=== PATIENT | female | born 1950 | race Caucasian/White ===

== ENCOUNTER 2018-10-05 08:00 | Outpatient (CLI) | payer MEDICARE ==
[2018-10-05 12:19] LABS: BASOPHILS # (AUTO) 0.1 10^3/uL (0.0-0.1); EOSINOPHILS # (AUTO) 0.1 10^3/uL (0.0-0.7); EOSINOPHILS % (AUTO) 3.3 %; HGB - HEMOGLOBIN 15.4 g/dL (12.0-16.0); LYMPHOCYTES # (AUTO) 1.2 10^3/uL (1.5-3.5); LYMPHOCYTES % (AUTO) 26.3 %; MEAN CORPUSCULAR HEMOGLOBIN 32.9 pg (27.0-31.0); MEAN CORPUSCULAR VOLUME 96.7 fL (81.0-99.0); MEAN PLATELET VOLUME 8.7 fL (7.9-10.8); MONOCYTES # (AUTO) 0.5 10^3/uL (0.0-1.0); MONOCYTES % (AUTO) 11.1 %; NEUTROPHILS # (AUTO) 2.6 10^3/uL (1.5-6.6); NEUTROPHILS % (AUTO) 57.3 %; PLT - PLATELET COUNT 198 10^3/uL (130-450); RED BLOOD COUNT 4.67 10^6/uL (4.20-5.40); RED CELL DISTRIBUTION WIDTH 13.1 % (12.0-15.0); WHITE BLOOD COUNT 4.5 x10^3/uL (4.8-10.8)
[2018-10-05 12:59] LABS: ALBUMIN 3.9 g/dL (3.2-5.5); ALBUMIN/GLOBULIN RATIO 1.2 (1.0-2.2); ALKALINE PHOSPHATASE 96 IU/L (42-121); ALT ALANINE AMINOTRANSFERASE 31 IU/L (10-60); AST ASPARTATE AMINOTRANSFERASE 38 IU/L (10-42); BILIRUBIN,TOTAL 0.5 mg/dL (0.2-1.0); BUN - BLOOD UREA NITROGEN 14 mg/dL (6-20); CALCIUM 8.6 mg/dL (8.5-10.3); CARBON DIOXIDE - CO2 28 mmol/L (21-32); CHLORIDE 104 mmol/L (101-111); CHOL/HDL RATIO 2.2 (<4.4); CHOLESTEROL 168 mg/dL; CREATININE 0.6 mg/dL (0.4-1.0); GFR - MDRD 100 (>89); GLUCOSE 90 mg/dL (70-100); HDL CHOLESTEROL 75 mg/dL; LDL CHOLESTEROL,CALCULATED 66 mg/dL; LDL/HDL RATIO 0.9 (<4.4); SODIUM 138 mmol/L (135-145); TOTAL PROTEIN 7.2 g/dL (6.7-8.2); VLDL CHOLESTEROL 27 mg/dL
== END 2018-10-05 23:59 | disposition home or self-care (01) ==
LOC: LAB.WCP 08:00
PROVIDERS: ATTEND Family Medicine
DX: E55.9 Vitamin D deficiency, unspecified (principal); Z79.890 Hormone replacement therapy; F41.9 Anxiety disorder, unspecified; I10 Essential (primary) hypertension
CPT/HCPCS: 36415; 80053; 80061; 82306; 83721; 84443; 85025

== ENCOUNTER 2019-01-23 08:00 | Outpatient (CLI) | payer MEDICARE | END 2019-01-24 23:59 | disposition home or self-care (01) | LOC: LAB.R 08:00 | PROVIDERS: ATTEND Family Medicine | DX: N39.0 Urinary tract infection, site not specified (principal) | CPT/HCPCS: 87086; 87181 ==

== ENCOUNTER 2019-03-22 12:18 | Outpatient (CLI) | payer MEDICARE, MEDICAID ==
--- NOTE | 2019-04-03 14:56 | Mammography Report ---
Reason: SCREENING EXAM FOR BREAST CANCER Procedure Date: 03/22/2019 Accession Number: [id number] / [id number] Procedure: HERNANDEZ - Screening Mammo w/Juan CPT Code: FULL RESULT: EXAM: Screening Mammo w/Juan DATE: 03/22/2019 1:00 PM CLINICAL HISTORY: Screening encounter. No reported risk factors. TECHNIQUE: (B) - Bilateral CC and MLO views were obtained. COMPARISON: 10/15/2017. PARENCHYMAL PATTERN: (D) - The breast(s) demonstrate(s) heterogeneously dense fibroglandular parenchyma. FINDINGS: There are coarse typically benign calcifications. There are no suspicious masses, calcifications, or areas of distortion. IMPRESSION: Benign findings. BI-RADS category 2. RECOMMENDATION: (ANNUAL) - Recommend routine annual screening mammography. BI-RADS CATEGORY: (2) - Benign Findings. STANDARD QUALIFYING STATEMENTS: 1. This examination was not reviewed with the aid of Computer-Aided Detection (CAD). 2. A negative or benign imaging report should not preclude biopsy if clinically suspicious findings are present. 3. Dense breasts may obscure an underlying neoplasm. 4. This examination was reviewed with the aid of 3D breast imaging (tomosynthesis).
== END 2019-03-22 12:19 | disposition home or self-care (01) ==
LOC: DI 12:18
PROVIDERS: ATTEND Family Medicine
DX: Z12.31 Encounter for screening mammogram for malignant neoplasm of breast (principal)
CPT/HCPCS: 77063; 77067

== ENCOUNTER 2019-07-24 08:00 | Outpatient (CLI) | payer MEDICAID, MEDICARE | END 2019-07-24 23:59 | disposition home or self-care (01) | LOC: LAB.R 08:00 | PROVIDERS: ATTEND Nurse Practitioner | DX: N39.0 Urinary tract infection, site not specified (principal) | CPT/HCPCS: 87077; 87086; 87181 ==

== ENCOUNTER 2020-05-23 11:15 | Outpatient (CLI) | payer MEDICARE, MEDICAID | END 2020-05-23 23:59 | disposition home or self-care (01) | LOC: LAB.R 11:15 | PROVIDERS: ATTEND Family Medicine | DX: N39.0 Urinary tract infection, site not specified (principal) | CPT/HCPCS: 81002; 87086 ==

== ENCOUNTER 2020-12-08 16:18 | Emergency (ER) | payer MEDICARE, MEDICAID ==
[2020-12-08] MEDS ORDERED: methylPREDNISolone SUCCINATE 125 MG/2 ML VIAL IVP STA (17:24)
[2020-12-08] MEDS ORDERED: IPRATROPIUM/ALBUTEROL 3 ML NEB INH STA (17:24)
--- NOTE | 2020-12-08 17:31 | ED Physician Documentation ---
History of Present Illness - Stated complaint Stated Complaint: SOA, WEAK, HEADACHE - Chief complaint Chief Complaint: Resp - History obtained from History obtained from: Patient - History of Present Illness Timing: Today Pain level max: 0 Pain level now: 0 - Additonal information Additional information: Patient is a 70-year-old female who presents to the emergency department with difficulty breathing today. Has a history of COPD and uses inhalers. She states she started Macrobid for UTI and has been having difficulty breathing since starting that yesterday. She states she is not having any itching. Has not taken anything. She states she feels tired and weak today. No fevers. No chills. No vomiting Review of Systems Constitutional: denies: Fever, Chills GI: denies: Vomiting, Diarrhea Skin: denies: Rash PD PAST MEDICAL HISTORY - Past Medical History Past Medical History: Yes Cardiovascular: Hypertension, Coronary artery disease Respiratory: COPD - Present Medications Home Medications: Ambulatory Orders Medication Instructions Recorded Confirmed cephALEXin [Keflex] 500 mg PO Q6H #20 cap 12/08/20 predniSONE [Deltasone] 10 mg PO [id number] #42 tab 12/08/20 - Allergies Allergies/Adverse Reactions: Allergies Allergy/AdvReac Type Severity Reaction Status Date / Time No Known Drug Allergies Allergy Verified 12/08/20 16:52 - Living Situation Living Arrangement: reports: At home - Social History Does the pt smoke?: Yes Smoking Status: Current every day smoker - Family History Family history: reports: Non contributory PD ED PE NORMAL - Vitals Vital signs reviewed: Yes - General General: Alert and oriented X 3, No acute distress, Well developed/nourished - HEENT HEENT: Moist mucous membranes, Pharynx benign - Neck Neck: Supple, no meningeal sign - Cardiac Cardiac: RRR, Strong equal pulses - Respiratory Respiratory: Other (diminished breath sounds and wheezing B) - Abdomen Abdomen: Soft, Non tender, Non distended - Derm Derm: Warm and dry, No rash - Extremities Extremities: No edema - Neuro Neuro: Alert and oriented X 3 - Psych Psych: Normal mood, Normal affect Results - Vitals Vitals: Vital Signs - 24 hr 12/08/20 12/08/20 12/08/20 16:48 16:52 17:36 Temperature 36.6 C Heart Rate 111 H 112 H 113 H Respiratory 24 31 H 20 Rate Blood Pressure 174/67 H 167/85 H O2 Saturation 96 97 12/08/20 12/08/20 17:55 18:43 Temperature 36.6 C Heart Rate 111 H 104 H Respiratory 22 18 Rate Blood Pressure 139/72 H 147/88 H O2 Saturation 94 93 Oxygen O2 Source Room air - EKG (time done) 1731 Rate: Rate (enter#) (112) Rhythm: Sinus tachycardia [place]: Normal Intervals: Normal MT QRS: Normal Ischemia: Normal ST segments - Labs Labs: Laboratory Tests 12/08/20 12/08/20 12/08/20 17:50 17:50 17:50 WBC 10.4 RBC 4.74 Hgb 15.6 Hct 46.2 MCV 97.5 MCH 32.9 H MCHC 33.8 RDW 13.2 Plt Count 189 MPV 9.9 Neut # (Auto) 9.3 H Lymph # (Auto) 0.4 L [place] # (Auto) 0.6 Eos # (Auto) 0.1 Baso # (Auto) 0.0 Absolute Nucleated RBC 0.00 Nucleated RBC % 0.0 Sodium 131 L Potassium 4.3 Chloride 100 L Carbon Dioxide 20 L Anion Gap 11.0 BUN 11 Creatinine 0.8 Estimated GFR (MDRD) 71 L Glucose 120 H Calcium 9.4 Total Bilirubin 1.1 H AST 60 H ALT 42 Alkaline Phosphatase 86 Troponin I High Sens 5.3 Total Protein 7.3 Albumin 4.2 Globulin 3.1 Albumin/Globulin Ratio 1.4 Lipase 34 - Rads (name of study) cxr Radiology: Prelim report reviewed, EMP read contemporaneously, See rad report (No acute cardiopulmonary pathology. ) PD MEDICAL DECISION MAKING - ED course Complexity details: reviewed results, re-evaluated patient, considered differential, d/w patient ED course: Patient with what appears to be a COPD flare, but could also be an allergic reaction to macrobid. Feels much better after steroids and DuoNeb treatment. Breathing easier. Appears more likely a COPD flare. Patient is well-appearing, nontoxic. Afebrile. No hypoxia. No respiratory distress. Will change Macrobid to Keflex. Patient counseled regarding signs and symptoms for which I believe and urgent re-evaluation would be necessary. Patient with good understanding of and agreement to plan and is comfortable going home at this time This document was made in part using voice recognition software. While efforts are made to proofread this document, sound alike and grammatical errors may occur. Departure - Departure Disposition: 01 Home, Self Care Clinical Impression: Dyspnea Qualifiers: Dyspnea type: unspecified Qualified Code(s): R06.00 - Dyspnea, unspecified Condition: Good Instructions: ED Dyspnea Shortness of Breath Follow-Up: Sea Yao MD [Primary Care Provider] - Within 1 week Prescriptions: predniSONE [Deltasone] 10 mg PO [id number] #42 tab cephALEXin [Keflex] 500 mg PO Q6H #20 cap Comments: Your prescriptions were sent to [facility] in [place]. Follow-up with your doctor for further care. Stop the Macrobid. This could be due to an exacerbation of your chronic lung disease versus an allergic reaction to the Macrobid. Return if you worsen Discharge Date/Time: 12/08/20 18:45
--- NOTE | 2020-12-08 17:50 | XRAY Report ---
PROCEDURE: Chest 1 View X-Ray INDICATIONS: dyspnea TECHNIQUE: One view of the chest was acquired. COMPARISON: None FINDINGS: Surgical changes and devices: None. Lungs and pleura: No pleural effusions or pneumothorax. Lungs are clear. Mediastinum: Mediastinal contours appear normal. Heart size is normal. Bones and chest wall: No suspicious bony lesions. Old healed left posterior lateral seventh and eigh th rib fractures are seen. Overlying soft tissues appear unremarkable. IMPRESSION: No acute cardiopulmonary pathology. Reviewed by: Alok Garcia MD on 12/08/2020 5:49 PM PDT Approved by: Alok Garcia MD on 12/08/2020 5:49 PM PDT Station ID: [id number]
[2020-12-08 17:59] LABS: BASOPHILS % (AUTO) 0.4 %; EOSINOPHILS # (AUTO) 0.1 10^3/uL (0.0-0.7); EOSINOPHILS % (AUTO) 0.5 %; HCT - HEMATOCRIT 46.2 % (37.0-47.0); HGB - HEMOGLOBIN 15.6 g/dL (12.0-16.0); LYMPHOCYTES # (AUTO) 0.4 10^3/uL (1.5-3.5); LYMPHOCYTES % (AUTO) 3.4 %; MEAN CORPUSCULAR HEMOGLOBIN 32.9 pg (27.0-31.0); MEAN CORPUSCULAR HGB CONC 33.8 g/dL (32.0-36.0); MEAN CORPUSCULAR VOLUME 97.5 fL (81.0-99.0); MEAN PLATELET VOLUME 9.9 fL (7.9-10.8); MONOCYTES # (AUTO) 0.6 10^3/uL (0.0-1.0); MONOCYTES % (AUTO) 5.6 %; NEUTROPHILS # (AUTO) 9.3 10^3/uL (1.5-6.6); NEUTROPHILS % (AUTO) 89.7 %; PLT - PLATELET COUNT 189 10^3/uL (130-450); RED BLOOD COUNT 4.74 10^6/uL (4.20-5.40); RED CELL DISTRIBUTION WIDTH 13.2 % (12.0-15.0); WHITE BLOOD COUNT 10.4 x10^3/uL (4.8-10.8)
[2020-12-08 18:26] LABS: ALBUMIN 4.2 g/dL (3.2-5.5); ALBUMIN/GLOBULIN RATIO 1.4 (1.0-2.2); BILIRUBIN,TOTAL 1.1 mg/dL (0.2-1.0); CALCIUM 9.4 mg/dL (8.5-10.3); CREATININE 0.8 mg/dL (0.4-1.0); POTASSIUM 4.3 mmol/L (3.5-5.0); TOTAL PROTEIN 7.3 g/dL (6.7-8.2)
[2020-12-08 18:44] VITALS: BP 147/88
== END 2020-12-08 18:45 | disposition home or self-care (01) ==
LOC: ED 16:18
DX: J44.1 Chronic obstructive pulmonary disease with (acute) exacerbation (principal); F17.200 Nicotine dependence, unspecified, uncomplicated; R00.0 Tachycardia, unspecified; I10 Essential (primary) hypertension
CPT/HCPCS: 36415; 80053; 83690; 84484; 85025; 93005; 94640; 96374; 99283

== ENCOUNTER 2020-12-09 16:38 | Outpatient (CLI) | payer MEDICARE, MEDICAID | END 2020-12-09 16:39 | disposition home or self-care (01) | LOC: COV 16:38 | PROVIDERS: ATTEND Ophthalmology | DX: Z01.812 Encounter for preprocedural laboratory examination (principal); H25.811 Combined forms of age-related cataract, right eye; Z20.822 Contact with and (suspected) exposure to COVID-19 ==

== ENCOUNTER 2020-12-12 06:59 | Day surgery (SDC) | payer MEDICARE, MEDICAID ==
[~2020-12-12 06:59] MED LIST: KETOROLAC 0.45% OPHTH DROPS ONE; PHENYLEPHRINE 2.5% OPHTH 2 ML DROPS ONE; PROPARACAINE 0.5% OPHTH DROPS 15 ML ONE
[2020-12-12] MEDS ORDERED: VANCOMYCIN OPHTHALMI 8MG/0.8ML 8 MG/0.8 ML SYRINGE IO ONE ×2 (07:06→08:11)
[2020-12-12] MEDS ORDERED: BSS/LIDOCAINE/EPINEPHRINE 1 ML SYRINGE ONE (07:06)
[2020-12-12] MEDS ORDERED: TRIAMCIN/MOXIFLOX OPHTHALMIC 0.6 ML VIAL IO ONE ×2 (07:06→08:11)
[2020-12-12] MEDS ORDERED: TIMOLOL 0.5% OPHTH DROPS ONE (07:06)
[2020-12-12] MEDS ORDERED: BRIMONIDINE 0.2% OPHTH DROPS 5 ML ONE (07:06)
[2020-12-12] MEDS ORDERED: EPINEPHrine 1 MG/ML AMP ONE (07:06)
--- NOTE | 2020-12-12 07:37 | ANESTHESIA ---
Pre-Anesthesia VS, & Labs - Diagnosis R senile combined cataract - Procedure R extraction cataract w/IOL Vital Signs: Temp Pulse Resp BP Pulse Ox 36.4 C L 85 16 154/90 H 96 12/12/20 07:19 12/12/20 07:19 12/12/20 07:19 12/12/20 07:19 12/12/20 07:19 Height: 5 ft 5 in - NPO >8 hours - Is Patient ?: No - Lab Results Lab results reviewed: Yes Home Medications and Allergies Home Medications: Ambulatory Orders Estradiol [Estrace] 0.5 mg PO DAILY 12/11/20 Metoprolol Succinate [Kapspargo Sprinkle] 25 mg PO DAILY 12/11/20 Estradiol [Estrace] 0.5 mg PO DAILY 12/11/20 Metoprolol Succinate [Kapspargo Sprinkle] 25 mg PO DAILY 12/11/20 Allergies/Adverse Reactions: Allergies Allergy/AdvReac Type Severity Reaction Status Date / Time No Known Drug Allergies Allergy Verified 12/08/20 16:52 Anes History & Medical History - Anesthetic History Anesthesia Complications: reports: No previous complications Family history of Anesthesia Complications: Denies Family history of Malignant Hyperthermia: Denies - Medical History Cardiovascular: reports: None Pulmonary: reports: Other Gastrointestinal: reports: None Urinary: reports: None Musculoskeletal: reports: None Endocrine/Autoimmune: reports: None Skin: reports: Psoriasis Smoking Status: Current every day smoker - Surgical History Gynecologic: reports: Hysterectomy, Other Orthopedic: reports: Spine surgery Exam General: Alert, Oriented x3, Cooperative Dental: WNL Mouth Openin Fingerbreadth Neck Mobility: Normal Mallampati classification: II Thyromental Distance: 4-6 cm Respiratory: Lungs clear, Normal breath sounds Cardiovascular: Regular rate Neurological: Normal speech Mental/Cognitive Status: Alert/Oriented X3, Normal for patient Cognitive Status: Within normal limits Plan Anesthesia Type: MAC Consent for Procedure(s) Verified and Reviewed: Yes Code Status: Attempt Resuscitation ASA classification: 2-Mild systemic disease Is this case an emergency?: No
[2020-12-12] MEDS ORDERED: LACTATED RINGERS 500 ML IV ONE (07:40)
[2020-12-12] MEDS ORDERED: MIDAZOLAM 2 MG/2 ML VIAL ONE ×2 (08:07)
[2020-12-12] MEDS ORDERED: TIMOLOL 0.5% OPHTH DROPS OPTH ONE (08:10)
[2020-12-12] MEDS ORDERED: EPINEPHrine 1 MG/ML AMP IR ONE (08:10)
[2020-12-12] MEDS ORDERED: CHONDR SULF/HYALURONATE SYRINGE IO ONE (08:10)
[2020-12-12] MEDS ORDERED: BRIMONIDINE 0.2% OPHTH DROPS 5 ML OPTH ONE (08:10)
[2020-12-12] MEDS ORDERED: BSS/LIDOCAINE/EPINEPHRINE 1 ML SYRINGE IO ONE (08:10)
[2020-12-12] MEDS ORDERED: PROPARACAINE 0.5% OPHTH DROPS 15 ML EACHEYE ONE (08:11)
[2020-12-12] MEDS ORDERED: LACTATED RINGERS 300 ML IV ONE (08:17)
[2020-12-12 08:21] VITALS: BP 137/70
--- NOTE | 2020-12-12 09:11 | OPERATIVE REPORT ---
DATE OF SERVICE: 12/12/2020 Physician: Magan West MD PREOPERATIVE DIAGNOSIS: Visually significant cataract, right eye. This was her first cataract surge ry. POSTOPERATIVE DIAGNOSIS: Visually significant cataract, right eye. This was her first cataract surg sohan. PROCEDURE: Phacoemulsification with posterior chamber intraocular lens implant, right eye. SURGEON: Magan West MD. ANESTHESIA: Monitored anesthesia care. COMPLICATIONS: None. OPERATIVE INDICATIONS: This is a 70-year-old woman with progressive vision loss in the right eye due to 2+ cortical cataract and 3+ nuclear sclerotic cataract. Best corrected visual acuity was 20/40 w ith glare to hand motion vision. Indications for surgery are overall decrease in vision, difficulty seeing words on a computer screen, difficulty seeing words, closed caption or game scores on TV, diff iculty seeing street signs, difficulty driving in low light or at night, and difficulty driving at [facility] because of headlights from other vehicles. She was consented at length concerning risks and bene fits of cataract surgery, after which she expressed a desire to proceed with surgery. OPERATIVE PROCEDURE: The patient was taken into OR #3 and placed under monitored anesthesia care. A surgical timeout was conducted, confirming correct patient, correct procedure, and correct surgical site. She was given topical anesthesia and prepped and draped in usual sterile fashion. The eye was entered at the 12 and 9 o'clock positions. Intracameral Shugarcaine was injected into the anterior chamber followed by Viscoat. A continuous-tear curvilinear capsulorrhexis was performed. The nucleu s was hydrodissected and phacoemulsified. The cortex was evacuated using automated infusion and aspi ration. Provisc was injected in the capsular bag and a 18.5 diopter intraocular lens inserted into t he bag. Infusion and aspiration were used to evacuate the viscoelastic materials. The eye was infla lucía to physiologic pressure using balanced salt solution and found to be watertight. Approximately 0 .25 mL of a mixture of triamcinolone and moxifloxacin was injected transsclerally into the vitreous i n the inferotemporal quadrant. An additional 0.55 mL of a mixture of triamcinolone, moxifloxacin, an d vancomycin was injected subconjunctivally in the superior quadrant for infection and inflammation p rophylaxis. Wound integrity was checked with Weck-Sugey sponges. The patient was taken from the [facility] room in good condition and given postoperative instructions. TD: 12/12/2020 08:33
--- NOTE | 2020-12-12 09:48 | ANESTHESIA POST OP EVALUATION ---
Anesthesia Post Eval - Post Anesthesia Eval Vitals: Last Vital Signs Temp 36.4 C L 12/12/20 08:20 Pulse 69 12/12/20 08:20 Resp 16 12/12/20 08:20 BP 137/70 H 12/12/20 08:20 Pulse Ox 96 12/12/20 08:20 CV Function Including HR & BP: positive: Stable Pain Control: positive: Satisfactory Nausea & Vomiting: positive: Negative Mental Status: positive: Baseline Respiratory Status: Airway Patent Hydration Status: Satisfactory Anesthesia Complications: positive: None
== END 2020-12-12 07:00 | disposition home or self-care (01) ==
LOC: SDS 06:59
PROVIDERS: ATTEND Ophthalmology
DX: H25.811 Combined forms of age-related cataract, right eye (principal); I10 Essential (primary) hypertension; F17.200 Nicotine dependence, unspecified, uncomplicated
CPT/HCPCS: 66984; A9270; J3490; J7120

== ENCOUNTER 2021-01-06 07:00 | Outpatient (CLI) | payer MEDICARE, MEDICAID | END 2021-01-06 23:59 | disposition home or self-care (01) | LOC: COV 07:00 | PROVIDERS: ATTEND Ophthalmology | DX: Z01.812 Encounter for preprocedural laboratory examination (principal); H25.812 Combined forms of age-related cataract, left eye; Z20.822 Contact with and (suspected) exposure to COVID-19 ==

== ENCOUNTER 2021-01-09 08:57 | Day surgery (SDC) | payer MEDICARE, MEDICAID ==
[~2021-01-09 08:57] MED LIST changes: +BRIMONIDINE 0.2% OPHTH DROPS 5 ML ONE; +BSS/LIDOCAINE/EPINEPHRINE 1 ML SYRINGE ONE; +EPINEPHrine 1 MG/ML AMP ONE; -PHENYLEPHRINE 2.5% OPHTH 2 ML DROPS ONE; +TIMOLOL 0.5% OPHTH DROPS ONE; +TRIAMCIN/MOXIFLOX OPHTHALMIC 0.6 ML VIAL IO ONE; +VANCOMYCIN OPHTHALMI 8MG/0.8ML 8 MG/0.8 ML SYRINGE IO ONE
--- OUTSIDE RECORDS SUMMARY | 2021-01-09 08:59 | EXTERNAL MEDICAL SUMMARY RPT | Continuity of Care Document ---
:1950 Demographics Phone Unavailable Preferred Language Unknown Marital Status Unknown Presybeterian Affiliation Unknown Race Unknown Ethnic Group Unknown Author Organization Post Address [address] [id number] Phone Social History date description facility [phone]
[2021-01-09] MEDS ORDERED: LACTATED RINGERS 500 ML IV ONE ×2 (10:28→11:01)
[2021-01-09] MEDS ORDERED: TIMOLOL 0.5% OPHTH DROPS OPTH ONE (10:33)
[2021-01-09] MEDS ORDERED: CHONDR SULF/HYALURONATE SYRINGE IO ONE (10:33)
[2021-01-09] MEDS ORDERED: BRIMONIDINE 0.2% OPHTH DROPS 5 ML OPTH ONE (10:33)
[2021-01-09] MEDS ORDERED: EPINEPHrine 1 MG/ML AMP IR ONE (10:33)
[2021-01-09] MEDS ORDERED: MIDAZOLAM 2 MG/2 ML VIAL ONE (10:33)
[2021-01-09] MEDS ORDERED: BSS/LIDOCAINE/EPINEPHRINE 1 ML SYRINGE IO ONE (10:34)
[2021-01-09] MEDS ORDERED: TRIAMCIN/MOXIFLOX OPHTHALMIC 0.6 ML VIAL IO ONE (10:34)
[2021-01-09] MEDS ORDERED: PROPARACAINE 0.5% OPHTH DROPS 15 ML EACHEYE ONE (10:35)
[2021-01-09] MEDS ORDERED: VANCOMYCIN OPHTHALMI 8MG/0.8ML 8 MG/0.8 ML SYRINGE IO ONE (10:35)
--- NOTE | 2021-01-09 10:36 | ANESTHESIA ---
Pre-Anesthesia VS, & Labs - Diagnosis combined cataract - Procedure left cataract extraction with IOL Vital Signs: Temp Pulse Resp BP Pulse Ox 36.7 C 85 16 160/84 H 98 01/09/21 10:08 01/09/21 10:08 01/09/21 10:08 01/09/21 10:08 01/09/21 10:08 Height: 5 ft 4 in Weight (kg): 67 kg Body Mass Index: 25.3 BMI Classification: Overweight - NPO >8 hours - Is Patient ?: No Home Medications and Allergies Estradiol [Estrace] 0.5 mg PO DAILY 12/11/20 Metoprolol Succinate [Kapspargo Sprinkle] 25 mg PO DAILY 12/11/20 Allergies/Adverse Reactions: Allergies Allergy/AdvReac Type Severity Reaction Status Date / Time No Known Drug Allergies Allergy Verified 12/08/20 16:52 Anes History & Medical History - Anesthetic History Anesthesia Complications: reports: No previous complications - Medical History Cardiovascular: reports: None Pulmonary: reports: None Gastrointestinal: reports: None Urinary: reports: None Musculoskeletal: reports: None Endocrine/Autoimmune: reports: None Skin: reports: Psoriasis Smoking Status: Current every day smoker History of Cancer?: No - Surgical History Gynecologic: reports: Hysterectomy Orthopedic: reports: Spine surgery Exam General: Alert, Oriented x3 Dental: WNL Mouth Opening: Can't Open Mouth Neck Mobility: Normal Mallampati classification: II Thyromental Distance: greater than 6 cm Plan Anesthesia Type: MAC Consent for Procedure(s) Verified and Reviewed: Yes Code Status: Attempt Resuscitation ASA classification: 2-Mild systemic disease Is this case an emergency?: No
--- NOTE | 2021-01-09 11:13 | ANESTHESIA POST OP EVALUATION ---
Anesthesia Post Eval - Post Anesthesia Eval Vitals: Last Vital Signs Temp 36.4 C L 01/09/21 11:02 Pulse 78 01/09/21 11:06 Resp 20 01/09/21 11:06 BP 139/68 H 01/09/21 11:06 Pulse Ox 98 01/09/21 11:06 CV Function Including HR & BP: Stable Pain Control: Satisfactory Nausea & Vomiting: Negative Mental Status: Baseline Respiratory Status: Airway Patent Hydration Status: Satisfactory Anesthesia Complications: None
[2021-01-09 11:15] VITALS: BP 133/69
--- NOTE | 2021-01-09 11:29 | OPERATIVE REPORT ---
DATE OF SERVICE: 01/09/2021 Physician: Magan West MD PREOPERATIVE DIAGNOSIS: Visually significant cataract, left eye. Cataract surgery was performed on the right eye on 12/12/2020. POSTOPERATIVE DIAGNOSIS: Visually significant cataract, left eye. Cataract surgery was performed on the right eye on 12/12/2020. PROCEDURE: Phacoemulsification with posterior chamber intraocular lens implant, left eye. SURGEON: Magan West MD. ANESTHESIA: Monitored anesthesia care. COMPLICATIONS: None. OPERATIVE INDICATIONS: This is a 70-year-old woman with progressive vision loss in the left eye due to 3+ nuclear sclerotic and 2+ to 3+ cortical cataract. Best corrected visual acuity was 20/25 with glare to hand motion vision in the left eye. Indications for surgery are overall decrease in vision, difficulty seeing words on a computer screen, difficulty reading, difficulty seeing words, closed caption or game scores on TV, difficulty seeing street signs, difficulty driving in low light or at night, difficulty driving at night because of headlights from other vehicles, difficulty with glare or bright lights in any situation, and difficulty tracking a golf ball. She was consented at length concerning risks and benefits of cataract surgery, after which she expressed a desire to proceed with surgery. OPERATIVE PROCEDURE: The patient was taken into OR #3 and placed under monitored anesthesia care. A surgical timeout was conducted, confirming correct patient, correct procedure, and correct surgical site. She was given topical anesthesia and prepped and draped in usual sterile fashion. The eye was entered at the 6 and 3 o'clock positions. Intracameral Shugarcaine was injected into the anterior chamber followed by Viscoat. A continuous-tear curvilinear capsulorrhexis was performed. The nucleus was hydrodissected and phacoemulsified. The cortex was evacuated using automated infusion and aspiration. Provisc was injected into the capsular bag and a 19.0 diopter toric intraocular lens inserted into the bag and rotated to a premarked axis of 083 degrees. Markers were on the cornea from a [place] marker. Infusion and aspiration were used to evacuate the viscoelastic materials. The eye was inflated to physiologic pressure using balanced salt solution and found to be watertight. The axis was then again verified to be still at 083. Approximately 0.25 mL of a mixture of triamcinolone and moxifloxacin was injected transsclerally into the vitreous in the inferotemporal quadrant. An additional 0.55 mL of a mixture of triamcinolone, moxifloxacin, and vancomycin was injected subconjunctivally in the superior quadrant for infection and inflammation prophylaxis. Wound integrity was checked with Weck-Sugey sponges. The axis of the IOL was again verified to still be at 083. The patient was taken from the operating room in good condition and given postoperative instructions. TD: 01/09/2021 11:28 MTDD
== END 2021-01-09 08:58 | disposition home or self-care (01) ==
LOC: SDS 08:57
PROVIDERS: ATTEND Ophthalmology
DX: H25.812 Combined forms of age-related cataract, left eye (principal); I10 Essential (primary) hypertension; F17.200 Nicotine dependence, unspecified, uncomplicated; E66.3 Overweight; Z68.25 Body mass index [BMI] 25.0-25.9, adult; Z79.899 Other long term (current) drug therapy; Z98.1 Arthrodesis status
CPT/HCPCS: 66984; A9270; J3490; J7120; V2632

== ENCOUNTER 2021-01-17 10:41 | Outpatient (CLI) | payer MEDICARE, MEDICAID ==
[2021-01-17 10:55] LABS: BASOPHILS # (AUTO) 0.1 10^3/uL (0.0-0.1); BASOPHILS % (AUTO) 1.1 %; EOSINOPHILS # (AUTO) 0.1 10^3/uL (0.0-0.7); EOSINOPHILS % (AUTO) 0.9 %; HCT - HEMATOCRIT 46.7 % (37.0-47.0); HGB - HEMOGLOBIN 15.4 g/dL (12.0-16.0); LYMPHOCYTES # (AUTO) 1.6 10^3/uL (1.5-3.5); MEAN CORPUSCULAR HEMOGLOBIN 32.8 pg (27.0-31.0); MEAN CORPUSCULAR VOLUME 99.6 fL (81.0-99.0); MEAN PLATELET VOLUME 9.7 fL (7.9-10.8); MONOCYTES # (AUTO) 0.7 10^3/uL (0.0-1.0); MONOCYTES % (AUTO) 10.1 %; NEUTROPHILS # (AUTO) 4.1 10^3/uL (1.5-6.6); NEUTROPHILS % (AUTO) 62.4 %; PLT - PLATELET COUNT 248 10^3/uL (130-450); RED BLOOD COUNT 4.69 10^6/uL (4.20-5.40); RED CELL DISTRIBUTION WIDTH 13.2 % (12.0-15.0); WHITE BLOOD COUNT 6.5 x10^3/uL (4.8-10.8)
[2021-01-17 11:06] LABS: ALBUMIN 4.3 g/dL (3.2-5.5); ALBUMIN/GLOBULIN RATIO 1.4 (1.0-2.2); BILIRUBIN,TOTAL 0.9 mg/dL (0.2-1.0); CALCIUM 9.3 mg/dL (8.5-10.3); CREATININE 0.7 mg/dL (0.4-1.0); POTASSIUM 4.2 mmol/L (3.5-5.0); TOTAL PROTEIN 7.4 g/dL (6.7-8.2)
== END 2021-01-17 10:42 | disposition home or self-care (01) ==
LOC: LAB 10:41
PROVIDERS: ATTEND Family Medicine
DX: I10 Essential (primary) hypertension (principal); N28.9 Disorder of kidney and ureter, unspecified; F41.9 Anxiety disorder, unspecified
CPT/HCPCS: 36415; 80053; 85025

== ENCOUNTER 2021-04-25 08:47 | Emergency (ER) | payer MEDICARE, MEDICAID ==
[2021-04-25] MEDS ORDERED: KETOROLAC 30 MG/ML VIAL IVP STA (09:19)
[2021-04-25] MEDS ORDERED: IOPAMIDOL-300 100 ML VIAL ONE (09:28)
[2021-04-25 09:39] LABS: BASOPHILS # (AUTO) 0.1 10^3/uL (0.0-0.1); BASOPHILS % (AUTO) 0.9 %; EOSINOPHILS # (AUTO) 0.1 10^3/uL (0.0-0.7); EOSINOPHILS % (AUTO) 1.4 %; HCT - HEMATOCRIT 47.9 % (37.0-47.0); HGB - HEMOGLOBIN 16.3 g/dL (12.0-16.0); LYMPHOCYTES # (AUTO) 1.2 10^3/uL (1.5-3.5); LYMPHOCYTES % (AUTO) 17.4 %; MEAN PLATELET VOLUME 9.8 fL (7.9-10.8); MONOCYTES # (AUTO) 0.7 10^3/uL (0.0-1.0); MONOCYTES % (AUTO) 10.5 %; NEUTROPHILS # (AUTO) 4.8 10^3/uL (1.5-6.6); NEUTROPHILS % (AUTO) 69.2 %; PLT - PLATELET COUNT 197 10^3/uL (130-450); RED BLOOD COUNT 4.94 10^6/uL (4.20-5.40); RED CELL DISTRIBUTION WIDTH 12.6 % (12.0-15.0)
--- NOTE | 2021-04-25 09:40 | ED Physician Documentation ---
History of Present Illness - Stated complaint Stated Complaint: NECK PX - Chief complaint Chief Complaint: General - History obtained from History obtained from: Patient - History of Present Illness Timing: How many days ago (5) Pain level max: 10 Pain level now: 10 - Additonal information Additional information: 71-year-old female complains of left-sided posterior neck pain and occipital head pain. Nothing seems to make it better or worse. She states no increased pain with range of motion. Denies any trauma. No fevers. No chills. No rhinorrhea, no congestion. No vomiting or diarrhea. Review of Systems Ten Systems: 10 systems reviewed and negative Constitutional: denies: Fever, Chills Ears: denies: Ear pain Nose: denies: Rhinorrhea / runny nose, Congestion Throat: denies: Sore throat Cardiac: denies: Chest pain / pressure, Palpitations Respiratory: denies: Dyspnea, Cough GI: denies: Vomiting Skin: denies: Rash Musculoskeletal: denies: Neck pain, Back pain Neurologic: denies: Generalized weakness, Focal weakness, Numbness, Confused, Altered mental status, Headache PD PAST MEDICAL HISTORY - Past Medical History Past Medical History: Yes Cardiovascular: Hypertension, Coronary artery disease Respiratory: COPD - Present Medications Home Medications: Ambulatory Orders Medication Instructions Recorded Confirmed Estradiol [Estrace] 0.5 mg PO DAILY 12/11/20 01/09/21 Metoprolol Succinate [Kapspargo 25 mg PO DAILY 12/11/20 01/09/21 Sprinkle] Oxycodone HCl/Acetaminophen 1 - 2 each PO Q6H PRN #14 tablet 04/25/21 [Percocet 5-325 mg Tablet] - Allergies Allergies/Adverse Reactions: Allergies Allergy/AdvReac Type Severity Reaction Status Date / Time nitrofurantoin Allergy Respiratory Verified 04/25/21 09:05 [From Macrobid] Sulfa (Sulfonamide Allergy Unknown Verified 04/25/21 09:05 Antibiotics) - Social History Does the pt smoke?: Yes Smoking Status: Current every day smoker PD ED PE NORMAL - Vitals Vital signs reviewed: Yes - General General: Alert and oriented X 3, No acute distress - HEENT HEENT: PERRL, Ears normal, Moist mucous membranes, Pharynx benign - Neck Neck: Supple, no meningeal sign, No bony TTP, No JVD, No bruit, Other (FROM without pain. no skin rashes. no radicular symptoms) - Cardiac Cardiac: RRR, No murmur - Respiratory Respiratory: No respiratory distress, Clear bilaterally - Abdomen Abdomen: Soft, Non tender, Non distended - Back Back: No spinal TTP - Derm Derm: Warm and dry - Extremities Extremities: No tenderness to palpate, Normal ROM s pain - Neuro Neuro: Alert and oriented X 3, net wpf developer 2-12 intact, No motor deficit, No sensory deficit, Normal speech Eye Opening: Spontaneous Motor: Obeys Commands Verbal: Oriented GCS Score: 15 - Psych Psych: Normal mood, Normal affect Results - Vitals Vitals: Vital Signs - 24 hr 04/25/21 04/25/21 04/25/21 08:55 09:03 11:03 Temperature 36.2 C L Heart Rate 82 76 70 Respiratory 16 21 17 Rate Blood Pressure 151/75 H 144/70 H 127/62 O2 Saturation 95 98 92 04/25/21 12:11 Temperature 36.2 C L Heart Rate 70 Respiratory 14 Rate Blood Pressure 124/60 O2 Saturation 97 Oxygen O2 Source Room air - Labs Labs: Laboratory Tests 04/25/21 04/25/21 09:29 09:29 WBC 7.0 RBC 4.94 Hgb 16.3 H Hct 47.9 H MCV 97.0 MCH 33.0 H MCHC 34.0 RDW 12.6 Plt Count 197 MPV 9.8 Neut # (Auto) 4.8 Lymph # (Auto) 1.2 L [place] # (Auto) 0.7 Eos # (Auto) 0.1 Baso # (Auto) 0.1 Absolute Nucleated RBC 0.00 Nucleated RBC % 0.0 Sodium 136 Potassium 4.4 Chloride 101 Carbon Dioxide 26 Anion Gap 9.0 BUN 9 Creatinine 0.7 Estimated GFR (MDRD) 83 L Glucose 107 H Calcium 9.3 Total Bilirubin 0.9 AST 38 ALT 33 Alkaline Phosphatase 90 Total Protein 7.6 Albumin 4.3 Globulin 3.3 Albumin/Globulin Ratio 1.3 - Rads (name of study) ct angio head Radiology: Final report received, EMP read contemporaneously, See rad report ct angio neck Radiology: Final report received, EMP read contemporaneously, See rad report PD MEDICAL DECISION MAKING - ED course Complexity details: reviewed results, re-evaluated patient, considered differential, d/w patient, d/w family ED course: No significant findings on angiogram of the head and neck. No evidence of vertebral artery dissection, carotid dissection. No muscular tenderness on exam. Unclear etiology of her symptoms. Pain did resolve with Dilaudid. Will prescribe a small amount of pain medication for home and have her follow-up with her doctor for further care. Patient counseled regarding signs and symptoms for which I believe and urgent re-evaluation would be necessary. Patient with good understanding of and agreement to plan and is comfortable going home at this time This document was made in part using voice recognition software. While efforts are made to proofread this document, sound alike and grammatical errors may occu r. I am prescribing a short course of short-acting opioid pain medication for this patient. I have reviewed the patients [employer] and no concerning findings were noted. I have discussed that the opioids are for short term therapy only, and will not be refilled from the ED. Departure - Departure Disposition: Home, Self Care Clinical Impression: Neck pain Condition: Good Instructions: ED Neck Pain No Trauma Follow-Up: Sea Yao MD [Primary Care Provider] - Within 1 week Prescriptions: Oxycodone HCl/Acetaminophen [Percocet 5-325 mg Tablet] 1 - 2 each PO Q6H PRN #14 tablet PRN Reason: pain Comments: Follow up with your doctor for further care. Your tests do not show any acute abnormalities today. You do have a 50% narrowing in your proximal left internal carotid artery and a 50% narrowing in the proximal left common carotid artery. This can be followed up with your doctor. I am prescribing a short course of narcotic pain medication for you. These are potentially dangerous and addictive medications that should be used carefully. These medications may constipate you. Take an cyku-pbs-uxwwjzv stool softener (docusate) twice daily with plenty of water while taking these medications. If you go 24 hours without a bowel movement, take ikvw-kiu-kqjkjpq miralax, per package instructions. Do not drink or drive while taking these medications. If you received narcotic or sedating medications while in the emergency department, do not drive for 24 hours. Store this medication in a safe, secure place and out of reach of children. It is a violation of federal law to give or sell this medication to another person or to use in a manner other than prescribed. The ED will not refill narcotic prescriptions, including prescriptions lost or stolen. To dispose of unwanted medications: 1. [facility] at [address] in [place] has a medication drop box. They accept prescription medications (in pill form) Wednesday through Wednesday 9:00 a.m. to 5:00 p.m. 2. [facility] accepts prescription medications (in pill form only) for disposal year round. Call for more infor janelle. 3. Contact the [facility] for the next [facility] sponsored prescription drug collection event. , [phone], or [phone]; Discharge Date/Time: 04/25/21 12:12
[2021-04-25 09:51] LABS: ALBUMIN 4.3 g/dL (3.2-5.5); ALBUMIN/GLOBULIN RATIO 1.3 (1.0-2.2); BILIRUBIN,TOTAL 0.9 mg/dL (0.2-1.0); CALCIUM 9.3 mg/dL (8.5-10.3); CREATININE 0.7 mg/dL (0.4-1.0); POTASSIUM 4.4 mmol/L (3.5-5.0); TOTAL PROTEIN 7.6 g/dL (6.7-8.2)
[2021-04-25] MEDS ORDERED: HYDROmorphone 1 MG/ML CARPUJECT IVP STA (10:12)
[2021-04-25] MEDS ORDERED: IOPAMIDOL-300 100 ML VIAL IVP ONE (11:06)
--- NOTE | 2021-04-25 11:24 | CT Report ---
PROCEDURE: ANGIO NECK W INDICATIONS: headache,neck painx 1 week CONTRAST: IV CONTRAST: Isovue 300 ml: 80 PO CONTRAST: *NO PO CONTRAST TECHNIQUE: After the administration of intravenous contrast, 1.5 mm axial sections acquired from the aortic arch to the [employer] of [place]. Coronal 3-D maximum intensity projection (MIP) and/or volume rendering ref ormats were then performed. For radiation dose reduction, the following was used: automated exposur e control, adjustment of mA and/or kV according to patient size. COMPARISON: Correlation is made with the accompanying head CT angiogram, dated . FINDINGS: Image quality: Excellent. Carotid system: The great vessels demonstrate a conventional anatomy as they arise from the aortic a rc. The origins of the common carotid arteries appear patent. There is approximately 50% narrowing seen involving the proximal left common carotid artery. The common carotid arteries otherwise demons trate normal calibers and courses. The bifurcation regions demonstrate atherosclerotic irregularity and calcification. There is approximately 50% narrowing seen involving the left proximal internal car otid artery. The more distal internal carotid arteries demonstrate normal course and caliber. There i s potential prior carotid endarterectomy change. Please correlate with patient history. Posterior circulation: The origins of the vertebral arteries appear patent. The more superior porti ons of the vertebral arteries demonstrate normal course and caliber. They join to form a normal appe aring basilar artery. Soft tissues: Visualized neck soft tissues demonstrate no suspicious abnormalities. The thyroid is normal in size and there are no incidental findings. Bones: No suspicious bony lesions. Visualized cervical spine appears normally aligned. Relatively prominent lower cervical spine degenerative changes are seen. IMPRESSION: There is approximately 50% narrowing seen involving the proximal left internal carotid artery. There is also approximately 50% narrowing seen involving the proximal left common carotid artery. The estimate of stenosis included in the report of the imaging study was calculated using the NASCET method Reviewed by: Sharan Palmer MD on 04/25/2021 10:23 AM ME[facility] Approved by: Sharan Palmer MD on 04/25/2021 10:23 AM ME[facility] Station ID: [id number]
--- NOTE | 2021-04-25 11:26 | CT Report ---
PROCEDURE: ANGIO HEAD W/WO INDICATIONS: headache,neck painx 1 week CONTRAST: IV CONTRAST: Isovue 300 ml: 80 PO CONTRAST: *NO PO CONTRAST TECHNIQUE: Precontrast 4.5 mm thick angled axial sections acquired from the foramen magnum to the vertex. Afte r the administration of intravenous contrast, 1 mm thick sections acquired through the [place] of [place] is. Postcontrast 4.5 mm thick sections then re-acquired from the foramen magnum to the vertex. 3-di mensional gmhdsus-nkuuwyyys-mrpdbcofrv (MIP) and/or volume rendering reformats were acquired of the c entral intracranial vasculature. For radiation dose reduction, the following was used: automated ex posure control, adjustment of mA and/or kV according to patient size. COMPARISON: Correlation is made with the accompanying neck CT angiogram, 04/25/2021. FINDINGS: Image quality: Excellent. Anterior circulation: There is dense calcification seen involving the right intracranial internal car otid artery, with 50-60% narrowing. The flow within the paired anterior cerebral arteries is normal a nd symmetric. The flow within the middle cerebral arteries is normal and symmetric. The anterior co mmunicating artery is seen. No aneurysms are seen. Posterior circulation: Visualized portions of the vertebral arteries demonstrate normal caliber, and join to form a normal appearing basilar artery. Flow within the posterior cerebral arteries is norm al and symmetric. Note is made of a prominent right posterior communicating artery. No aneurysms are seen. CSF spaces: Ventricles are normal in size and shape. Basal cisterns are patent. No extra-axial flu id collections. Brain: No midline shift. No intracranial bleeds or masses. Vick-white matter interface appears int act. Skull and face: Calvarium and facial bones appear intact, without suspicious lesions. Sinuses: Visualized sinuses and mastoids are clear. IMPRESSION: No intracranial hemorrhage is seen. No significant intracranial abnormality is seen. No significant intracranial arterial abnormalities are seen. Reviewed by: Sharan Palmer MD on 04/25/2021 10:25 AM ME[facility] Approved by: Sharan Palmer MD on 04/25/2021 10:25 AM ME[facility] Station ID: [id number]
[2021-04-25 12:13] VITALS: BP 124/60
== END 2021-04-25 12:12 | disposition home or self-care (01) ==
LOC: ED 08:47
DX: M54.2 Cervicalgia (principal); R51.9 Headache, unspecified; I10 Essential (primary) hypertension; F17.200 Nicotine dependence, unspecified, uncomplicated
CPT/HCPCS: 36415; 70496; 70498; 80053; 85025; 96374; 96375; 99284; J1170; Q9967

== ENCOUNTER 2021-04-26 19:48 | Outpatient (CLI) | payer MEDICARE, MEDICAID | END 2021-04-26 19:49 | disposition critical access hospital (66) | LOC: EMS 19:48 | DX: R11.10 Vomiting, unspecified (principal); R07.89 Other chest pain | CPT/HCPCS: A0425; A0429 ==

== ENCOUNTER 2021-04-26 20:00 | Emergency (ER) | payer MEDICARE, MEDICAID ==
[2021-04-26] MEDS ORDERED: SODIUM CHLORIDE 0.9% 1,000 ML IV STA (20:11)
--- NOTE | 2021-04-26 20:18 | ED Physician Documentation ---
History of Present Illness - Stated complaint Stated Complaint: CP/VOMITING - Chief complaint Chief Complaint: Abd Pain - History obtained from History obtained from: Patient, Family - Additonal information Additional information: 71yF with pmh htn on metoprolol, also on estrogen replacement oral therapy p/w nbnb n/v around 4pm today with associated diarrhea X 1 (nonbloody). patient was eating scrambled eggs and trejo and had sudden nausea and then vomited it all up. she felt nauseous for a couple hours more then when her partner came home around 7pm she retched again and was sweaty, experiencing concomitant substernal sudden onset moderate severity "tight" quality chest pain, nonradiating, that resolved after about 10 minutes. denies lightheadedness, abd pain fever, recent travel or sick contacts. vaccinated against covid 19. she does state she has stomach issues at baseline but not usually to this extent. +smoker. denies FH W[place]/CAD Review of Systems Ten Systems: 10 systems reviewed and negative Constitutional: reports: Myalgias. denies: Fever Cardiac: reports: Chest pain / pressure Respiratory: denies: Dyspnea, Cough GI: reports: Nausea, Vomiting, Diarrhea. denies: Abdominal Pain Musculoskeletal: denies: Back pain PD PAST MEDICAL HISTORY - Past Medical History Cardiovascular: Hypertension, Coronary artery disease Respiratory: COPD - Present Medications Home Medications: Ambulatory Orders Medication Instructions Recorded Confirmed Estradiol [Estrace] 0.5 mg PO DAILY 12/11/20 04/26/21 Metoprolol Succinate [Kapspargo 25 mg PO DAILY 12/11/20 04/26/21 Sprinkle] Oxycodone HCl/Acetaminophen 1 - 2 each PO Q6H PRN #14 tablet 04/25/21 04/26/21 [Percocet 5-325 mg Tablet] - Allergies Allergies/Adverse Reactions: Allergies Allergy/AdvReac Type Severity Reaction Status Date / Time nitrofurantoin Allergy Respiratory Verified 04/26/21 20:08 [From Macrobid] Sulfa (Sulfonamide Allergy Unknown Verified 04/26/21 20:08 Antibiotics) - Social History Does the pt smoke?: Yes Smoking Status: Current every day smoker PD ED PE NORMAL - Vitals Vital signs reviewed: Yes - General General: Alert and oriented X 3, No acute distress, Well developed/nourished - HEENT HEENT: Atraumatic, PERRL, EOMI - Neck Neck: Supple, no meningeal sign - Cardiac Cardiac: RRR - Respiratory Respiratory: No respiratory distress, Clear bilaterally - Abdomen Abdomen: Non tender, Non distended - Back Back: No CVA TTP - Derm Derm: Normal color - Extremities Extremities: No deformity - Neuro Neuro: Alert and oriented X 3 - Psych Psych: Normal mood, Normal affect Results - Vitals Vitals: Vital Signs - 24 hr 04/26/21 04/26/21 04/26/21 20:08 20:10 22:10 Temperature 37.0 C 37 C 36.8 C Heart Rate 75 75 71 Respiratory 18 18 17 Rate Blood Pressure 161/98 H 161/98 H 150/80 H O2 Saturation 99 99 98 Oxygen O2 Source Room air - EKG (time done) 2024 Rate: Rate (enter#) (67) Rhythm: NSR [place]: Normal Intervals: Normal [place] QRS: Normal Ischemia: Normal ST segments - Labs Labs: Laboratory Tests 04/26/21 04/26/21 04/26/21 20:16 20:16 20:16 WBC 7.9 RBC 4.63 Hgb 15.2 Hct 45.4 MCV 98.1 MCH 32.8 H MCHC 33.5 RDW 12.5 Plt Count 207 MPV 9.8 Neut # (Auto) 5.8 Lymph # (Auto) 1.3 L [place] # (Auto) 0.7 Eos # (Auto) 0.1 Baso # (Auto) 0.1 Absolute Nucleated RBC 0.00 Nucleated RBC % 0.0 D-Dimer Sodium 134 L Potassium 4.2 Chloride 100 L Carbon Dioxide 26 Anion Gap 8.0 BUN 10 Creatinine 0.8 Estimated GFR (MDRD) 71 L Glucose 148 H Calcium 9.1 Total Bilirubin 0.7 AST 38 ALT 33 Alkaline Phosphatase 88 Troponin I High Sens 2.6 Total Protein 7.0 Albumin 4.0 Globulin 3.0 Albumin/Globulin Ratio 1.3 Lipase 28 04/26/21 20:16 WBC RBC Hgb Hct MCV MCH MCHC RDW Plt Count MPV Neut # (Auto) Lymph # (Auto) [place] # (Auto) Eos # (Auto) Baso # (Auto) Absolute Nucleated RBC Nucleated RBC % D-Dimer 209.5 Sodium Potassium Chloride Carbon Dioxide Anion Gap BUN Creatinine Estimated GFR (MDRD) Glucose Calcium Total Bilirubin AST ALT Alkaline Phosphatase Troponin I High Sens Total Protein Albumin Globulin Albumin/Globulin Ratio Lipase PD MEDICAL DECISION MAKING - ED course ED course: Well appearing 71yF presents after n/v episode and then subsequent retching with associated chest pain. 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 Patient feeling fine in the ED, requesting to go home. labs noncontributory. sand tester without concerning features. HEART score 3 (age, risk factors). GIven the diarrhea, this is not typeical for ACS. plan to f/u outpatient. Departure - Departure Disposition: 01 Home, Self Care Clinical Impression: Chest pain Condition: Good Instructions: ED Chest Pain NonCardiac Comments: You were seen in the emergency department for evaluation of chest pain. Your blood work did not show any emergent findings. Please return to the emergency department immediately if you have any new or worsening symptoms or other concerns. Follow-up with your primary doctor this week.
[2021-04-26 20:23] LABS: BASOPHILS # (AUTO) 0.1 10^3/uL (0.0-0.1); BASOPHILS % (AUTO) 0.9 %; EOSINOPHILS # (AUTO) 0.1 10^3/uL (0.0-0.7); EOSINOPHILS % (AUTO) 1.1 %; HCT - HEMATOCRIT 45.4 % (37.0-47.0); HGB - HEMOGLOBIN 15.2 g/dL (12.0-16.0); LYMPHOCYTES # (AUTO) 1.3 10^3/uL (1.5-3.5); LYMPHOCYTES % (AUTO) 16.3 %; MEAN CORPUSCULAR HEMOGLOBIN 32.8 pg (27.0-31.0); MEAN CORPUSCULAR HGB CONC 33.5 g/dL (32.0-36.0); MEAN CORPUSCULAR VOLUME 98.1 fL (81.0-99.0); MEAN PLATELET VOLUME 9.8 fL (7.9-10.8); MONOCYTES # (AUTO) 0.7 10^3/uL (0.0-1.0); MONOCYTES % (AUTO) 8.3 %; NEUTROPHILS # (AUTO) 5.8 10^3/uL (1.5-6.6); PLT - PLATELET COUNT 207 10^3/uL (130-450); RED BLOOD COUNT 4.63 10^6/uL (4.20-5.40); RED CELL DISTRIBUTION WIDTH 12.5 % (12.0-15.0); WHITE BLOOD COUNT 7.9 x10^3/uL (4.8-10.8)
--- NOTE | 2021-04-26 20:47 | XRAY Report ---
PROCEDURE: Chest 1 View X-Ray INDICATIONS: Chest Pain TECHNIQUE: One view of the chest was acquired. COMPARISON: 12/08/2020. FINDINGS: Surgical changes and devices: None. Lungs and pleura: No pleural effusions or pneumothorax. Lungs are clear. Mediastinum: Mediastinal contours appear normal. Heart size is normal. Bones and chest wall: Chronic left seventh and eighth rib fractures are stable compared to prior exa m No suspicious bony lesions. Overlying soft tissues appear unremarkable. IMPRESSION: No acute cardiopulmonary disease process. Reviewed by: Marisa Pelletier MD, PhD on 04/26/2021 8:46 PM PDT Approved by: Marisa Pelletier MD, PhD on 04/26/2021 8:46 PM PDT Station ID: [id number]
[2021-04-26 20:52] LABS: ALBUMIN/GLOBULIN RATIO 1.3 (1.0-2.2); BILIRUBIN,TOTAL 0.7 mg/dL (0.2-1.0); CALCIUM 9.1 mg/dL (8.5-10.3); CREATININE 0.8 mg/dL (0.4-1.0); POTASSIUM 4.2 mmol/L (3.5-5.0)
[2021-04-26 22:18] VITALS: BP 150/80
[2021-04-26] MEDS ORDERED: ONDANSETRON ODT 4 MG Prepack 2 TL PRN (22:55)
== END 2021-04-26 22:56 | disposition home or self-care (01) ==
LOC: EDBD → EDUNIT# → ED 20:00
DX: R07.9 Chest pain, unspecified (principal); R11.2 Nausea with vomiting, unspecified; R19.7 Diarrhea, unspecified; I25.10 Atherosclerotic heart disease of native coronary artery without angina pectoris; I10 Essential (primary) hypertension; F17.200 Nicotine dependence, unspecified, uncomplicated
CPT/HCPCS: 36415; 80053; 83690; 84484; 85025; 85379; 93005; 96360; 99284

== ENCOUNTER 2021-06-09 11:29 | Outpatient (CLI) | payer MEDICARE, MEDICAID ==
--- NOTE | 2021-06-09 12:52 | XRAY Report ---
PROCEDURE: Knee 3 View RT INDICATIONS: R KNEE PX TECHNIQUE: 3 views of the right knee(s) were acquired. COMPARISON: None. FINDINGS: Bones: No fractures or dislocations. No suspicious bony lesions. There is mild medial and patellof emoral compartment narrowing. Periarticular osteophytes are present without erosions. Lateral patella r subluxation is present. Soft tissues: Prominent joint effusion. No suspicious soft tissue calcifications. IMPRESSION: Prominent joint effusion. Medial and patellofemoral arthritic change. No visualized acut e fracture or dislocation. However, occult injury cannot be excluded. Recommend short interval imagin g follow-up in 7-10 days as clinically indicated for additional evaluation. Reviewed by: Kylee Cruz MD on 06/09/2021 12:51 PM PDT Approved by: Kylee Cruz MD on 06/09/2021 12:51 PM PDT Station ID: [id number]
== END 2021-06-09 23:59 | disposition home or self-care (01) ==
LOC: DI.N 11:29
PROVIDERS: ATTEND Nurse Practitioner
DX: S83.91XA Sprain of unspecified site of right knee, initial encounter (principal); M25.461 Effusion, right knee; M17.11 Unilateral primary osteoarthritis, right knee

== ENCOUNTER 2021-08-09 08:00 | Outpatient (CLI) | payer MEDICARE, MEDICAID | END 2021-08-09 23:59 | disposition home or self-care (01) | LOC: LAB.N 08:00 | PROVIDERS: ATTEND Family Medicine | DX: R39.9 Unspecified symptoms and signs involving the genitourinary system (principal) | CPT/HCPCS: 87077; 87086; 87181 ==

== ENCOUNTER 2021-12-02 10:40 | Outpatient (CLI) | payer MEDICARE, MEDICAID ==
[2021-12-02 11:36] LABS: BASOPHILS # (AUTO) 0.1 10^3/uL (0.0-0.1); BASOPHILS % (AUTO) 0.9 %; EOSINOPHILS # (AUTO) 0.1 10^3/uL (0.0-0.7); EOSINOPHILS % (AUTO) 1.3 %; HGB - HEMOGLOBIN 15.8 g/dL (12.0-16.0); LYMPHOCYTES # (AUTO) 1.6 10^3/uL (1.5-3.5); LYMPHOCYTES % (AUTO) 17.6 %; MEAN CORPUSCULAR HEMOGLOBIN 33.4 pg (27.0-31.0); MEAN CORPUSCULAR HGB CONC 34.3 g/dL (32.0-36.0); MEAN CORPUSCULAR VOLUME 97.3 fL (81.0-99.0); MONOCYTES # (AUTO) 0.9 10^3/uL (0.0-1.0); MONOCYTES % (AUTO) 9.4 %; NEUTROPHILS # (AUTO) 6.6 10^3/uL (1.5-6.6); NEUTROPHILS % (AUTO) 70.4 %; PLT - PLATELET COUNT 202 10^3/uL (130-450); RED BLOOD COUNT 4.73 10^6/uL (4.20-5.40); RED CELL DISTRIBUTION WIDTH 13.1 % (12.0-15.0); WHITE BLOOD COUNT 9.3 x10^3/uL (4.8-10.8)
[2021-12-02 11:41] LABS: BILIRUBIN,URINE NEGATIVE (NEGATIVE); GLUCOSE, URINE (UA) NEGATIVE (NEGATIVE); KETONES,URINE (UA) TRACE mg/dL (NEGATIVE); LEUKOCYTE ESTERASE, URINE NEGATIVE (NEGATIVE); NITRITE,URINE NEGATIVE (NEGATIVE); OCCULT BLOOD,URINE NEGATIVE (NEGATIVE); PH,URINE 5.5 PH (5.0-7.5); PROTEIN,URINE NEGATIVE (NEGATIVE); UROBILINOGEN,URINE 0.2 (NORMAL) E.U./dL (NORMAL)
[2021-12-02 11:57] LABS: ALBUMIN/GLOBULIN RATIO 1.2 (1.0-2.2); ALKALINE PHOSPHATASE 87 IU/L (42-121); ALT ALANINE AMINOTRANSFERASE 42 IU/L (10-60); AST ASPARTATE AMINOTRANSFERASE 53 IU/L (10-42); BILIRUBIN,TOTAL 0.6 mg/dL (0.2-1.0); BUN - BLOOD UREA NITROGEN 13 mg/dL (6-20); CALCIUM 9.1 mg/dL (8.5-10.3); CARBON DIOXIDE - CO2 24 mmol/L (21-32); CHLORIDE 100 mmol/L (101-111); CHOL/HDL RATIO 2.1 (<4.4); CHOLESTEROL 155 mg/dL; CREATININE 0.7 mg/dL (0.4-1.0); GFR - MDRD 83 (>89); GLUCOSE 97 mg/dL (70-100); HDL CHOLESTEROL 75 mg/dL; LDL CHOLESTEROL,CALCULATED 53 mg/dL; LDL/HDL RATIO 0.7 (<4.4); SODIUM 134 mmol/L (135-145); TOTAL PROTEIN 7.3 g/dL (6.7-8.2); TRIGLYCERIDES 136 mg/dL; VLDL CHOLESTEROL 27 mg/dL
[2021-12-02 11:59] LABS: CLARITY,URINE CLEAR (CLEAR); RBC,URINE 0-5 /HPF (0-5); SQUAMOUS EPITHELIAL CELL,UR MOD Squamous (<= Few); WBC,URINE 0-3 /HPF (0-5)
[2021-12-02 12:00] LABS: BACTERIA,URINE Few /HPF (None Seen); MUCUS,URINE Moderate Strands
[2021-12-02 12:06] LABS: THYROID STIMULATING HORMONE 3.5 uIU/mL (0.34-5.60)
--- NOTE | 2021-12-02 15:06 | DEXA Report ---
PROCEDURE: Dexa Spine and/or Hip INDICATIONS: OSTEOPOROSIS SCREENING TECHNIQUE: Dual energy x-ray absorptiometry (DXA) was performed on a Front Flip System. Regions measur ed are the AP Spine, femoral neck, and if needed forearm. COMPARISON: None. FINDINGS: Lumbar Spine: Bone Mineral Density 1.079 g/cm/cm,T score -0.7, normal. The L3 and L4 levels were excluded due to the presence of posterior fusion hardware. Left Hip: Bone Mineral Density 0.803 g/cm/cm,T score -1.6, osteopenia. Left Femoral Neck: Bone Mineral Density 0.787 g/cm/cm, T score -1.8, osteopenia. (T score greater or equal to -1.0: NORMAL) (T score from -1.1 to -2.4: OSTEOPENIA) (T score less than or equal to -2.5 to: OSTEOPOROSIS) Impression: Decreased bone mineral density in the left hip and left femoral neck within the osteopenic range. Patients with diagnosis of osteoporosis or osteopenia should have regular bone mineral density assess ment. For those eligible for Medicare, routine testing is allowed once every 2 years. Testing frequ ency can be increased for patients who have rapidly progressing disease or for those who are receivin g medical therapy to restore bone mass. Reviewed by: Yoel Antonio MD on 12/02/2021 3:05 PM PDT Approved by: Yoel Antonio MD on 12/02/2021 3:05 PM PDT Station ID: [id number]
== END 2021-12-02 10:41 | disposition home or self-care (01) ==
LOC: DI 10:40
PROVIDERS: ATTEND Nurse Practitioner Family
DX: Z13.820 Encounter for screening for osteoporosis (principal); M85.89 Other specified disorders of bone density and structure, multiple sites; Z78.0 Asymptomatic menopausal state; I10 Essential (primary) hypertension; Z13.220 Encounter for screening for lipoid disorders; Z13.21 Encounter for screening for nutritional disorder
CPT/HCPCS: 36415; 80053; 80061; 81001; 82306; 83721; 84443; 85025; 87086

== ENCOUNTER 2021-12-30 12:40 | Outpatient (CLI) | payer MEDICARE, MEDICAID ==
--- NOTE | 2021-12-31 14:08 | Mammography Report ---
BILATERAL DIGITAL SCREENING MAMMOGRAM 3D/2D: 12/30/2021 CLINICAL: Family history of breast cancer. Routine screening. Comparison is made to exams dated: 03/22/2019 mammogram and 10/15/2017 mammogram - [facility]. The tissue of both breasts is heterogeneously dense. This may lower the sensitivity of viviane mography. There are benign calcifications in both breasts. No significant masses, calcifications, or other findings are seen in either breast. There has been no significant interval change. IMPRESSION: BENIGN There is no mammographic evidence of malignancy. A 1 year screening mammogram is recommended. This exam was interpreted at Station ID: [id number]. NOTE: For mammograms, a report in lay terms will be sent to the patient. Approximately 15% of breast malignancies will not be visualized mammographically. In the management of a palpable breast mass, a negative mammogram must not discourage biopsy of a clinically suspicious lesion. Electronically Signed By: Nehemias Abbasi M.D. [facility] [place]:12/30/2021 15:07:35 ACR BI-RADS Category 2: Benign Finding(s) 3342F PARENCHYMAL PATTERN: (D) - The breast(s) demonstrate(s) heterogeneously dense fibroglandular parcarliny ma. BI-RADS CATEGORY: (2) - 2 RECOMMENDATION: (ANNUAL) - Recommend routine annual screening mammography. [id number] 1 year screening LATERALITY: (B)
== END 2021-12-30 12:41 | disposition home or self-care (01) ==
LOC: DI.N 12:40
PROVIDERS: ATTEND Nurse Practitioner Family
DX: Z12.31 Encounter for screening mammogram for malignant neoplasm of breast (principal); Z80.3 Family history of malignant neoplasm of breast

== ENCOUNTER 2022-04-13 09:40 | Outpatient (CLI) | payer MEDICARE ==
--- NOTE | 2022-04-13 12:35 | XRAY Report ---
PROCEDURE: Chest 2 View X-Ray INDICATIONS: CHEST WALL PX TECHNIQUE: 2 view(s) of the chest. COMPARISON: Chest radiograph 04/26/2021. FINDINGS: Surgical changes and devices: None. Lungs and pleura: No pleural effusions or pneumothorax. No suspicious focal airspace opacity. Mediastinum: Cardiac silhouette is within normal limits for size. Mediastinal and hilar contours are similar to before. Bones and chest wall: No definite acute displaced rib fracture visualized. Redemonstrated remote, hea led fracture of the left lateral eighth rib, possibly also the seventh rib. Soft tissues appear unrem arkable. IMPRESSION: No definite acute displaced rib fracture identified radiographically. If symptoms persist, follow-up radiographs and/or CT may be helpful for further evaluation. Reviewed by: Yoel Dominguez MD on 04/13/2022 12:34 PM PDT Approved by: Yoel Dominguez MD on 04/13/2022 12:34 PM PDT Station ID: [id number]
== END 2022-04-13 09:41 | disposition home or self-care (01) ==
LOC: DI.N 09:40
PROVIDERS: ATTEND Nurse Practitioner
DX: R07.89 Other chest pain (principal)

== ENCOUNTER 2022-09-09 14:25 | Outpatient (CLI) | payer MEDICARE, MEDICAID ==
--- NOTE | 2022-09-09 16:30 | XRAY Report ---
PROCEDURE: Ankle 3 View LT INDICATIONS: L ANKLE PX TECHNIQUE: 3 views of the ankle were acquired. COMPARISON: None. FINDINGS: Bones: There is a minimally displaced oblique fracture of the distal fibula at the metadiaphysis. No definite tibial fracture is seen. Remaining osseous structures are intact. Ankle mortise is normally aligned. No suspicious bony lesions. Soft tissues: Soft tissue edema is seen surrounding the ankle. IMPRESSION: Minimally displaced oblique fracture of the distal fibular metadiaphysis. Reviewed by: Yoel Antonio MD on 09/09/2022 4:29 PM PST Approved by: Yoel Antonio MD on 09/09/2022 4:29 PM PST Station ID: [id number]
--- NOTE | 2022-09-09 16:31 | XRAY Report ---
PROCEDURE: Tib/Fib LT INDICATIONS: L LOWER LEG PX TECHNIQUE: 2 views of the tibia and fibula were acquired. COMPARISON: None. FINDINGS: Bones: Minimally displaced oblique fracture of the distal fibular metadiaphysis. The tibia appears to be intact. The proximal fibula is intact. No suspicious bony lesions. Soft tissues: No suspicious soft tissue calcifications or masses. IMPRESSION: Minimally displaced oblique fracture of the distal fibula. Reviewed by: Yoel Antonio MD on 09/09/2022 4:30 PM [facility] [place] Approved by: Yoel Antonio MD on 09/09/2022 4:30 PM [facility] [place] Station ID: [id number]
== END 2022-09-09 23:59 | disposition home or self-care (01) ==
LOC: DI.N 14:25
PROVIDERS: ATTEND Family Medicine
DX: S82.432A Displaced oblique fracture of shaft of left fibula, initial encounter for closed fracture (principal)

== ENCOUNTER 2023-01-26 12:25 | Outpatient (CLI) | payer MEDICARE, MEDICAID ==
--- NOTE | 2023-01-27 10:55 | Mammography Report ---
BILATERAL DIGITAL SCREENING MAMMOGRAM 3D/2D: 01/26/2023 CLINICAL: Routine screening. Comparison is made to exams dated: 12/30/2021 mammogram, 03/22/2019 mammogram, and 10/15/2017 mammogram - formerly [facility]. Both breasts are heterogeneously dense, which may obscure small masses (category c / 51-75% glandular tissue). There are benign calcifications in both breasts. No significant masses, calcifications, or other findings are seen in either breast. There has been no significant interval change. IMPRESSION: BENIGN There is no mammographic evidence of malignancy. A 1 year screening mammogram is recommended. Based on the Tyrer Cuzick model (a risk assessment model) the patients lifetime risk is 11.3% and he r 10 year risk is 7.8%. According to the ACR, ACS, and NCCN guidelines, an annual breast MRI exam freeman ng with mammogram is recommended if the patients lifetime risk is 20% or greater. This exam was interpreted at Station ID: [id number]. NOTE: For mammograms, a report in lay terms will be sent to the patient. Approximately 15% of breast malignancies will not be visualized mammographically. In the management of a palpable breast mass, a negative mammogram must not discourage biopsy of a clinically suspicious lesion. Electronically Signed By: Pranav streeter/quincy:01/26/2023 13:00:34 letter sent: No_Letter ACR BI-RADS Category 2: Benign Finding(s) 3342F PARENCHYMAL PATTERN: (D) - The breast(s) demonstrate(s) heterogeneously dense fibroglandular ezekiel byrnes. BI-RADS CATEGORY: (2) - 2 Mammogram [id number] 1 year screening LATERALITY: (B)
== END 2023-01-26 12:26 | disposition home or self-care (01) ==
LOC: DI 12:25
DX: Z12.31 Encounter for screening mammogram for malignant neoplasm of breast (principal)

== ENCOUNTER 2023-06-07 10:26 | Outpatient (CLI) | payer MEDICARE, MEDICAID ==
[2023-06-07 10:45] LABS: BASOPHILS # (AUTO) 0.1 10^3/uL (0.0-0.1); BASOPHILS % (AUTO) 1.2 %; EOSINOPHILS # (AUTO) 0.2 10^3/uL (0.0-0.7); EOSINOPHILS % (AUTO) 2.3 %; HCT - HEMATOCRIT 50.7 % (37.0-47.0); HGB - HEMOGLOBIN 16.7 g/dL (12.0-16.0); LYMPHOCYTES # (AUTO) 1.6 10^3/uL (1.5-3.5); LYMPHOCYTES % (AUTO) 23.3 %; MEAN CORPUSCULAR HEMOGLOBIN 32.4 pg (27.0-31.0); MEAN CORPUSCULAR HGB CONC 32.9 g/dL (32.0-36.0); MEAN CORPUSCULAR VOLUME 98.3 fL (81.0-99.0); MEAN PLATELET VOLUME 10.1 fL (7.9-10.8); MONOCYTES # (AUTO) 0.8 10^3/uL (0.0-1.0); MONOCYTES % (AUTO) 11.4 %; NEUTROPHILS # (AUTO) 4.1 10^3/uL (1.5-6.6); NEUTROPHILS % (AUTO) 61.5 %; PLT - PLATELET COUNT 222 10^3/uL (130-450); RED BLOOD COUNT 5.16 10^6/uL (4.20-5.40); RED CELL DISTRIBUTION WIDTH 13.4 % (12.0-15.0); WHITE BLOOD COUNT 6.7 x10^3/uL (4.8-10.8)
[2023-06-07 11:10] LABS: ALBUMIN 4.3 g/dL (3.2-5.5); ALBUMIN/GLOBULIN RATIO 1.4 (1.0-2.2); ALKALINE PHOSPHATASE 101 IU/L (42-121); ALT ALANINE AMINOTRANSFERASE 50 IU/L (10-60); AST ASPARTATE AMINOTRANSFERASE 65 IU/L (10-42); BILIRUBIN,TOTAL 0.7 mg/dL (0.2-1.0); BUN - BLOOD UREA NITROGEN 10 mg/dL (6-20); CARBON DIOXIDE - CO2 29 mmol/L (21-32); CHLORIDE 103 mmol/L (101-111); CHOL/HDL RATIO 2.4 (<4.4); CHOLESTEROL 177 mg/dL; CREATININE 0.8 mg/dL (0.6-1.3); GFR - MDRD 71 (>89); GLUCOSE 147 mg/dL (74-104); HDL CHOLESTEROL 75 mg/dL; LDL CHOLESTEROL,CALCULATED 70 mg/dL; LDL/HDL RATIO 0.9 (<4.4); POTASSIUM 3.9 mmol/L (3.5-4.5); SODIUM 138 mmol/L (135-145); TOTAL PROTEIN 7.4 g/dL (6.4-8.9); TRIGLYCERIDES 160 mg/dL (48-352); VLDL CHOLESTEROL 32 mg/dL
[2023-06-07 11:24] LABS: THYROID STIMULATING HORMONE 4.02 uIU/mL (0.34-5.60)
== END 2023-06-07 10:27 | disposition home or self-care (01) ==
LOC: LAB 10:26
PROVIDERS: ATTEND Family Medicine
DX: J44.9 Chronic obstructive pulmonary disease, unspecified (principal); K21.9 Gastro-esophageal reflux disease without esophagitis; F17.210 Nicotine dependence, cigarettes, uncomplicated; E55.9 Vitamin D deficiency, unspecified; I10 Essential (primary) hypertension; R74.8 Abnormal levels of other serum enzymes
CPT/HCPCS: 36415; 80053; 80061; 82306; 83721; 84443; 85025

== ENCOUNTER 2023-08-14 08:00 | Outpatient (CLI) | payer MEDICARE, MEDICAID | END 2023-08-14 23:59 | disposition home or self-care (01) | LOC: LAB.N 08:00 | PROVIDERS: ATTEND Nurse Practitioner | DX: R30.0 Dysuria (principal) | CPT/HCPCS: 87086 ==

== ENCOUNTER 2024-04-10 13:31 | Outpatient (CLI) | payer MEDICARE, MEDICAID ==
[2024-04-10 14:30] LABS: CREATININE 0.9 mg/dL (0.6-1.3)
[2024-04-10] MEDS: iohexoL-300 100 ML VIAL IVP ONE (15:57)
[2024-04-10] MEDS: DIATRIZOATE MEGLU/DIATRIZO SOD 30 ML BOTTLE PO ONE (15:58)
--- NOTE | 2024-04-11 21:13 | CT Report ---
PROCEDURE: Abdomen/Pelvis W INDICATIONS: EPIGASTRIC PAIN CONTRAST: Omni 300 100ml TECHNIQUE: After the administration of intravenous contrast, a CT scan of the abdomen and pelvis was performed. Images were recorded and evaluated at appropriate window settings. Reformats: coronal and sagittal. F or radiation dose reduction, the following was used: automated exposure control, adjustment of mA and /or kV according to patient size. COMPARISON: CT chest on April 10, 2024 and May 06, 2022. FINDINGS: Image quality: Diagnostic. Lower chest: Please see same-day CT chest. Liver: No solid mass. Diffuse hypoattenuation of the liver. Gallbladder: Hyperattenuation in the gallbladder fundus is compatible with stones/sludge (, ), as seen on prior CT chest dated May 06, 2022. Biliary tree: No intrahepatic or extrahepatic dilation, accounting for age. Spleen: No splenomegaly. A few scattered subcentimeter calcified granulomas in the spleen compatible with prior granulomatous infection. Pancreas: No pancreatic ductal dilation. Adrenals: No adrenal nodule. Kidneys and ureters: No hydronephrosis or nephrolithiasis. Right extrarenal pelvis, normal anatomic v ariant.. No renal cystic lesion which requires follow up. No solid mass. Stomach, bowel and peritoneum: No hiatal hernia. Stomach is decompressed, limiting evaluation, but ap pears grossly normal. Small and large bowel is normal in caliber, without obstruction. Appendix is no t well seen; however, no acute inflammatory signs to suggest acute appendicitis. Lipomatosis of the i leocecal valve (111, ). Extensive sigmoid and scattered colonic diverticulosis, without divert iculitis. Lymph nodes: No central or retroperitoneal adenopathy. Vessels: No infrarenal aortic aneurysm. Patent portal vein. Moderate calcification of the abdominal a kimberly. PELVIS Reproductive organs: Hysterectomy. Bladder: No abnormal wall thickening, accounting for underdistention. Pelvic lymph nodes: No pelvic adenopathy by size criteria. Bones: No aggressive osseous abnormality. No acute fractures. Extensive posterior fusion hardware fro m L3 to S1 with bilateral transpedicular screws and interbody disc spacers is intact. Osseous deminer alization. Multilevel degenerative changes of the spine. Other: No significant ventral or inguinal hernia. Scattered pelvic phleboliths. Tiny fat-containing u mbilical hernia. IMPRESSION: 1.No acute pathology in the abdomen or pelvis. Appendix is not well seen; however, no acute inflammat ory signs to suggest acute appendicitis. 2.Stone/sludge within the gallbladder with no evidence of acute cholecystitis, as seen on CT chest da lucía May 06, 2022. 3.Diffuse hypoattenuation of the liver suggestive of steatosis. 4.Extensive sigmoid and scattered colonic diverticulosis, without diverticulitis. Reviewed by: Jaqueline Morin MD on 04/11/2024 9:12 PM PDT Approved by: Jaqueline Morin MD on 04/11/2024 9:12 PM PDT Station ID: [id number]
--- NOTE | 2024-04-11 21:21 | CT Report ---
PROCEDURE: Lung Cancer Screen INDICATIONS: SMOKER TECHNIQUE: A CT scan of the chest was performed. Intravenous contrast media was not administered. Images were re corded and evaluated at appropriate window settings. Reformats: axial MIP of the chest, coronal and s agittal. For radiation dose reduction, the following was used: automated exposure control, adjustment of mA and/or kV according to patient size. COMPARISON: CT chest on May 06, 2022. Same day CT abdomen and pelvis. FINDINGS: Image quality: Excellent. Prior cancer history: Unsure. Lungs and pleura: No pleural effusions. No pneumothorax. Compared to CT chest dated May 06, 2022, no new or enlarging solid pulmonary nodules or consolidation. Linear atelectasis/scar in the lingula . A few scattered subcentimeter calcified granulomas compatible with prior granulomatous infection. M ild biapical pleural-parenchymal scarring and emphysema. Patent central airways. Mediastinum: Heart size is normal. No pericardial effusion. No large vessel abnormality. No mediastin al adenopathy by size criteria. A few nonenlarged calcified mediastinal lymph nodes compatible with prior granulomatous infection. No significant coronary vessel calcification. Mild calcification of th e thoracic aorta. Chest wall and lower neck: Thyroid is unremarkable. No axillary or supraclavicular adenopathy by size . Bones: No aggressive osseous abnormality. No acute fractures. [id number] multilevel degenerativ e changes of the spine. Remote left-sided 7th-9th rib fractures. Upper Abdomen: Please see same day CT abdomen and pelvis. IMPRESSION: Compared to CT chest dated May 06, 2022, no new or enlarging solid pulmonary nodules or consolidat ion. Lung RAD: 1 - Negative. Recommendation: Continue annual screening in 12 Months with LDCT Reviewed by: Jaqueline Morin MD on 04/11/2024 9:20 PM PDT Approved by: Jaqueline Morin MD on 04/11/2024 9:20 PM PDT Station ID: [id number]
== END 2024-04-10 13:32 | disposition home or self-care (01) ==
LOC: LAB 13:31
PROVIDERS: ATTEND Family Medicine
DX: R10.13 Epigastric pain (principal); R10.816 Epigastric abdominal tenderness; Z12.2 Encounter for screening for malignant neoplasm of respiratory organs; F17.210 Nicotine dependence, cigarettes, uncomplicated; J98.4 Other disorders of lung; J43.9 Emphysema, unspecified; R91.8 Other nonspecific abnormal finding of lung field
CPT/HCPCS: 36415; 71271; 74177; 82565; Q9967